=== PATIENT | male | born 1985 | race Caucasian/White ===

== ENCOUNTER 2016-07-31 20:51 | Emergency (ER) | payer MEDICAID ==
[~2016-07-31] VITALS: Ht 162.6 cm; Wt 68.2 kg
[2016-07-31 20:55] VITALS: Ht 162.6 cm; Wt 68.2 kg
--- NOTE | 2016-07-31 21:41 | ERA ---
ER Documentation Chief Complaint Date/Time DATE: 07/31/16 TIME: 21:41 Chief Complaint Palpitation HPI The patient is a 30-year-old male, presenting to the ER because of palpitation at about 8 PM. He denies similar symptoms previously, denies syncope, near syncope, dizziness, chest pain, dyspnea, abdominal pain, vomiting, dysuria, diarrhea. He does not smoke, drinks socially, denies illicit drug Past medical/surgical history: None ROS All systems reviewed and are negative except as per history of present illness. Medications Home Meds No Active Prescriptions or Reported Meds Allergies Allergies: Coded Allergies: No Known Allergy (Unverified , 07/31/16) PMhx/Soc Medical and Surgical Hx: pt denies Medical Hx, pt denies Surgical Hx Hx Alcohol Use: Yes Hx Substance Use: No Hx Tobacco Use: No Smoking Status: Never smoker Physical Exam Vitals Vital Signs Date Time Temp Pulse Resp B/P Pulse Ox O2 Delivery O2 Flow Rate FiO2 08/01/16 00:26 98.7 99 16 145/71 99 Room Air 07/31/16 22:37 98.0 112 17 141/94 100 Room Air 07/31/16 21:35 117 26 147/92 100 Room Air 07/31/16 20:55 99.2 120 18 193/112 98 Physical Exam Const: No acute distress. Head: Atraumatic. Eyes: Normal Conjunctiva. ENT: Normal External Ears, Nose and Mouth. Neck: Full range of motion. No meningismus. Resp: Clear to auscultation bilaterally. Cardio: Regular rate and tachycardic Abd: Soft, non distended, normal bowel sounds, non tender. Skin: No petechiae or rashes. Back: No midline or flank tenderness. Ext: No cyanosis, or edema. Neur: Awake and alert. No focal deficit Psych: Normal Mood and Affect. Result Diagram: 07/31/16214107/31/162141 Results 24 hrs Laboratory Tests Test 07/31/16 21:42 07/31/16 22:06 White Blood Count 7.110^3/ul Red Blood Count 4.6010^6/ul Hemoglobin 14.2g/dl Hematocrit 41.4% Mean Corpuscular Volume 90.0fl Mean Corpuscular Hemoglobin 30.9pg Mean Corpuscular Hemoglobin Concent 34.3g/dl Red Cell Distribution Width 12.3% Platelet Count 83243^3/UL Mean Platelet Volume 9.6fl Neutrophils % 60.4% Lymphocytes % 27.9% Monocytes % 10.1% Eosinophils % 0.7% Basophils % 0.6% Nucleated Red Blood Cells % 0.0/100WBC Neutrophils # 4.310^3/ul Lymphocytes # 2.010^3/ul Monocytes # 0.710^3/ul Eosinophils # 0.110^3/ul Basophils # 0.010^3/ul Nucleated Red Blood Cells # 0.010^3/ul Prothrombin Time 12.0Sec Prothrombin Time Ratio 0.9 INR International Normalized Ratio 0.89 Activated Partial Thromboplast Time 22.2Sec D-Dimer < 220.00ng/ml D-Dimer Comment Sodium Level 140mmol/L Potassium Level 3.1mmol/L Chloride Level 98mmol/L Carbon Dioxide Level 28mmol/L Anion Gap 17 Blood Urea Nitrogen 17mg/dl Creatinine 0.97mg/dl Glucose Level 188mg/dl Calcium Level 9.4mg/dl Total Bilirubin 0.1mg/dl Direct Bilirubin 0.00mg/dl Indirect Bilirubin 0.1mg/dl Aspartate Amino Transf (AST/SGOT) 49IU/L Alanine Aminotransferase (ALT/SGPT) 92IU/L Alkaline Phosphatase 128IU/L Troponin I < 0.012ng/ml Total Protein 8.4g/dl Albumin 4.9g/dl Globulin 3.50g/dl Albumin/Globulin Ratio 1.40 Thyroid Stimulating Hormone (TSH) 1.220MIU/L Urine Opiates Screen Negative Urine Barbiturates Negative Urine Amphetamines Screen Negative Urine Benzodiazepines Screen Negative Urine Cocaine Screen Negative Urine Cannabinoids Negative Ethyl Alcohol Level < 10.0mg/dl Urine Color LT. YELLOW Urine Clarity CLEAR Urine pH 6.5 Urine Specific [place] 1.020 Urine Ketones NEGATIVE Urine Nitrite NEGATIVE Urine Bilirubin NEGATIVE Urine Urobilinogen 0.2 E.U./dL Urine Leukocyte Esterase NEGATIVE Urine Hemoglobin NEGATIVE Urine Glucose 0.25%% Urine Total Protein NEGATIVE Current Medications Medications (Trade) Dose Ordered Sig/Gui Route PRN Reason Start Time Stop Time Status Last Admin Dose Admin Potassium Chloride (Klor-Con 20) 40 meq ONCE STAT PO 07/31/16 22:35 07/31/16 22:36 DC 07/31/16 22:44 Procedures/[place] [id number] [place] [id number] Radiology Main Line: [phone] DIAGNOSTIC IMAGING REPORT Patient: STALIN VEE : 1985 Age: 30 Sex: M [id number] DOS: 07/31/16 2133 Ordering MD: LISA SHELLEY MD Location: E/R Room/Bed: PROCEDURE: XR Chest AP portable CLINICAL INDICATION: Short of breath TECHNIQUE: An AP portable radiograph of the chest was submitted. COMPARISON: None. FINDINGS: Support Hardware: None Cardiovascular: The cardiovascular silhouette appears unremarkable. Lung Jones: The lung jones are clear. Pleural Spaces: No pneumothorax or pleural effusion is identified. Osseous Structures: The osseous structures appear intact. Soft Tissues: The soft tissues appear unremarkable. IMPRESSION: Unremarkable portable chest. Physician Eric Date Time Electronically viewed and signed by Mandi Daniels Physician on 07/31/2016 22:16 RH/ CC: LISA SHELLEY MD EKG: Read by emergency physician Rate/Rhythm: Sinus tachycardia 122 beats/min QRS, ST, T-waves: No ST elevation, no T inversion Impression: Abnormal EKG MEDICAL MAKING DECISION: The patient is a 30-year-old male, presenting with acute palpitation, acute hypokalemia. He was treated with potassium chloride 40 mEq p.o. with good response. The differential diagnoses considered include but are not limited to acute anxiety attack, acute panic attack, asthma, COPD, pneumonia, pulmonary embolus, pleural effusion, congestive heart failure. At 12:30 AM, his vital signs improved in the ER without any intervention, blood pressure 145/91, heart rate 105. He denies any symptoms Departure Diagnosis: Primary Impression: Palpitations Additional Impressions: Hypokalemia Abnormal LFTs Condition: Good Comments I discussed the findings with the patient. I advised the patient to follow-up with the primary physician in about 1-2 days, sooner if needed and return if any concern. The patient's blood pressure was elevated (>120/80) but appears stable without evidence of hypertension emergency or urgency. The patient was counseled about the risks of hypertension and urged to pursue outpatient monitoring and therapy within a week with their primary care physician. LISA SHELLEY MD Jul 31, 2016 21:41
[2016-07-31 21:58] LABS: ADD SCAN DIFF NO
[2016-07-31 21:59] LABS: BASOPHILS % 0.6 % (0.0-2.0); EOSINOPHILS # 0.1 10^3/ul (0.0-0.5); EOSINOPHILS % 0.7 % (0.0-7.0); HEMATOCRIT 41.4 % (42.0-52.0); HEMOGLOBIN 14.2 g/dl (14.0-18.0); LYMPHOCYTES % 27.9 % (15.0-51.0); MEAN CORPUSCULAR HEMOGLOBIN 30.9 pg (29.0-33.0); MEAN CORPUSCULAR HGB CONC 34.3 g/dl (32.0-37.0); MEAN PLATELET VOLUME 9.6 fl (7.4-10.4); MONOCYTE # 0.7 10^3/ul (0.3-0.9); MONOCYTES % 10.1 % (0.0-11.0); NEUTROPHIL # 4.3 10^3/ul (1.6-7.5); NEUTROPHILS % 60.4 % (39.0-77.0); PLATELET COUNT 280 10^3/UL (140-415); RED CELL DISTRIBUTION WIDTH 12.3 % (11.5-14.5); WHITE BLOOD COUNT 7.1 10^3/ul (4.8-10.8)
[2016-07-31 22:08] LABS: ALBUMIN 4.9 g/dl (3.3-4.9); CHLORIDE 98 mmol/L (97-110); SODIUM 140 mmol/L (135-144)
[2016-07-31 22:08] LABS: ADD UMIC NO; URINE BILIRUBIN (Dip) NEGATIVE (NEGATIVE); URINE BLOOD (Dip) NEGATIVE (NEGATIVE); URINE COLOR LT. YELLOW (YELLOW); URINE KETONES (Dip) NEGATIVE (NEGATIVE); URINE LEUKOCYTE ESTERASE (Dip) NEGATIVE (NEGATIVE); URINE NITRITE (Dip) NEGATIVE (NEGATIVE); URINE TOTAL PROTEIN (Dip) NEGATIVE (NEGATIVE); URINE UROBILINOGEN (Dip) 0.2 E.U./dL (0.1-1.0)
[2016-07-31 22:09] LABS: INR 0.89; POTASSIUM 3.1 mmol/L (3.5-5.1); PT RATIO 0.9
[2016-07-31 22:10] LABS: PARTIAL THROMBOPLASTIN TIME 22.2 Sec (25.0-35.0)
[2016-07-31 22:11] LABS: ALANINE AMINOTRANSFERASE 92 IU/L (13-69); ALKALINE PHOSPHATASE 128 IU/L (42-121); ANION GAP 17 (8-16); ASPARTATE AMINO TRANSFERASE 49 IU/L (15-46); BILIRUBIN,INDIRECT 0.1 mg/dl (0-1.1); BILIRUBIN,TOTAL 0.1 mg/dl (0.2-1.3); BLOOD UREA NITROGEN 17 mg/dl (7-20); CARBON DIOXIDE 28 mmol/L (21-31); CREATININE 0.97 mg/dl (0.61-1.24); GLUCOSE 188 mg/dl (70-220); TOTAL PROTEIN 8.4 g/dl (6.1-8.1)
[2016-07-31 22:12] LABS: CALCIUM 9.4 mg/dl (8.4-10.2)
[2016-07-31 22:17] LABS: ETHANOL < 10.0 mg/dl
--- NOTE | 2016-07-31 22:17 | RADRPT ---
PROCEDURE: XR Chest AP portable CLINICAL INDICATION: Short of breath TECHNIQUE: An AP portable radiograph of the chest was submitted. COMPARISON: None. FINDINGS: Support Hardware: None Cardiovascular: The cardiovascular silhouette appears unremarkable. Lung Arthur: The lung arthur are clear. Pleural Spaces: No pneumothorax or pleural effusion is identified. Osseous Structures: The osseous structures appear intact. Soft Tissues: The soft tissues appear unremarkable. IMPRESSION: Unremarkable portable chest. Physician Eric Date Time Electronically viewed and signed by Mandi Daniels Physician on 07/31/2016 22:16 /
[2016-07-31] MEDS ORDERED: POTASSIUM CHLORIDE (SR) 20 MEQ TAB PO STA (22:35)
[2016-07-31 22:38] LABS: TROPONIN-I < 0.012 ng/ml (0.00-0.12)
[2016-07-31 23:29] LABS: BARBITURATES Negative (NEGATIVE); BENZODIAZEPINES Negative (NEGATIVE); CANNABINOIDS Negative (NEGATIVE); COCAINE Negative (NEGATIVE); OPIATES Negative (NEGATIVE)
[2016-07-31 23:37] LABS: D-DIMER < 220.00 ng/ml (<460)
[2016-08-01 00:54] VITALS: BP 136/86; PULSE 101; RESP 22; TEMP 98.9
== END 2016-08-01 00:59 | disposition home or self-care (01) ==
LOC: E/R 20:51
DX: R00.2 Palpitations (principal); E87.6 Hypokalemia; R94.5 Abnormal results of liver function studies; R06.02 Shortness of breath
CPT/HCPCS: 71010; 80053; 80306; 80307; 81003; 84443; 84484; 85025; 85378; 85610; 85730; 93005; Z7610; 36415

== ENCOUNTER 2016-09-09 14:43 | Emergency (ER) | payer SELFPAY ==
[~2016-09-09] VITALS: Wt 64.0 kg
--- NOTE | 2016-09-09 14:59 | ERA ---
ER Documentation Chief Complaint Date/Time DATE: 09/09/16 TIME: 14:59 Chief Complaint Palpitation HPI The patient is a 30-year-old male, presenting to the ER because of palpitation that began about 8 AM this morning. He has similar symptoms previously. He does drink a lot of coffee, denies syncope, near syncope, seizure, neck pain, chest pain, abdominal pain, vomiting, dysuria, diarrhea. He does not smoke, drinks socially, denies illicit drug Past medical history/surgical history: None Past surgical history: None ROS All systems reviewed and are negative except as per history of present illness. Medications Home Meds No Active Prescriptions or Reported Meds Allergies Allergies: Coded Allergies: No Known Allergy (Unverified , 09/09/16) PMhx/Soc Hx Alcohol Use: Yes Hx Substance Use: No Hx Tobacco Use: No Physical Exam Vitals Vital Signs Date Time Temp Pulse Resp B/P Pulse Ox O2 Delivery O2 Flow Rate FiO2 09/09/16 15:48 71 20 133/88 100 09/09/16 14:45 98.8 112 20 166/100 100 Physical Exam Const: No acute distress. Head: Atraumatic. Eyes: Normal Conjunctiva. ENT: Normal External Ears, Nose and Mouth. Neck: Full range of motion. No meningismus. Resp: Clear to auscultation bilaterally. Cardio: Regular tachycardic Abd: Soft, non distended, normal bowel sounds, non tender. Skin: No petechiae or rashes. Back: No midline or flank tenderness. Ext: No cyanosis, or edema. Neur: Awake and alert. No focal deficit Psych: Normal Mood and Affect. Result Diagram: 09/09/16 1505 09/09/16 1505 Results 24 hrs Laboratory Tests Test 09/09/16 15:05 White Blood Count 6.210^3/ul Red Blood Count 4.9010^6/ul Hemoglobin 15.0g/dl Hematocrit 44.5% Mean Corpuscular Volume 90.8fl Mean Corpuscular Hemoglobin 30.6pg Mean Corpuscular Hemoglobin Concent 33.7g/dl Red Cell Distribution Width 12.1% Platelet Count 28994^3/UL Mean Platelet Volume 9.3fl Neutrophils % 66.8% Lymphocytes % 26.1% Monocytes % 6.2% Eosinophils % 0.3% Basophils % 0.3% Nucleated Red Blood Cells % 0.0/100WBC Neutrophils # 4.110^3/ul Lymphocytes # 1.610^3/ul Monocytes # 0.410^3/ul Eosinophils # 0.010^3/ul Basophils # 0.010^3/ul Nucleated Red Blood Cells # 0.010^3/ul Prothrombin Time 11.8Sec Prothrombin Time Ratio 0.9 INR International Normalized Ratio 0.87 Activated Partial Thromboplast Time 23.9Sec Sodium Level 140mmol/L Potassium Level 3.5mmol/L Chloride Level 99mmol/L Carbon Dioxide Level 27mmol/L Anion Gap 18 Blood Urea Nitrogen 14mg/dl Creatinine 0.88mg/dl Glucose Level 137mg/dl Calcium Level 9.4mg/dl Troponin I < 0.012ng/ml Current Medications Medications (Trade) Dose Ordered Sig/Gui Route PRN Reason Start Time Stop Time Status Last Admin Dose Admin Lorazepam (Ativan) 0.5 mg ONCE ONCE PO 09/09/16 15:30 09/09/16 15:31 DC 09/09/16 15:18 Procedures/[place] [id number] Radiology Main Line: [phone] DIAGNOSTIC IMAGING REPORT Patient: JOHN VEE : 1985 Age: 30 Sex: M MR #: [id number] DOS: 09/09/16 1506 Ordering MD: LISA SHELLEY MD Location: E/R Room/Bed: PROCEDURE: XR Chest. CLINICAL INDICATION: chest pain TECHNIQUE: Single frontal view of the chest was obtained COMPARISON: 07/31/2016 FINDINGS: The heart and mediastinum are within normal limits. The lungs are clear. There is no pleural effusion or pneumothorax. RPTAT: AA IMPRESSION: No acute disease. .Rolf Rossi MD, Date Time Electronically viewed and signed by .Rolf Rossi MD, MD on 09/09/2016 15: 34 .S/ CC: LISA SHELLEY MD EKG: Read by emergency physician Rate/Rhythm: Sinus tachycardia 110 beats/min QRS, ST, T-waves: No ST elevation, no T inversion, LVH, inferior and lateral Q waves Impression: Abnormal EKG MEDICAL MAKING DECISION: The patient is a 30-year-old male, presenting with acute palpitation of unclear etiology. He was treated with Ativan 0.5 mg p.o. with good response. The differential diagnoses considered include but are not limited to ectopy, bradyarrhythmia, tachyarrhythmia, AV blocks, acute coronary syndrome/DC, PE, drugs, metabolic, hyperthyroidism, bypass tracts. Departure Diagnosis: Primary Impression: Palpitation Condition: Good Comments I discussed the findings with the patient. I advised the patient to follow-up with the primary physician in about 1-2 days, sooner if needed and return if any concern. The patient's blood pressure was elevated (>120/80) but appears stable without evidence of hypertension emergency or urgency. The patient was counseled about the risks of hypertension and urged to pursue outpatient monitoring and therapy within a week with their primary care physician. LISA SHELLEY MD September 09, 2016 14:59
[2016-09-09 15:17] LABS: ADD SCAN DIFF NO
[2016-09-09 15:21] LABS: BASOPHILS % 0.3 % (0.0-2.0); EOSINOPHILS % 0.3 % (0.0-7.0); HEMATOCRIT 44.5 % (42.0-52.0); LYMPHOCYTES # 1.6 10^3/ul (0.8-2.9); LYMPHOCYTES % 26.1 % (15.0-51.0); MEAN CORPUSCULAR HEMOGLOBIN 30.6 pg (29.0-33.0); MEAN CORPUSCULAR HGB CONC 33.7 g/dl (32.0-37.0); MEAN CORPUSCULAR VOLUME 90.8 fl (82.0-101.0); MEAN PLATELET VOLUME 9.3 fl (7.4-10.4); MONOCYTE # 0.4 10^3/ul (0.3-0.9); MONOCYTES % 6.2 % (0.0-11.0); NEUTROPHIL # 4.1 10^3/ul (1.6-7.5); NEUTROPHILS % 66.8 % (39.0-77.0); PLATELET COUNT 248 10^3/UL (140-415); RED CELL DISTRIBUTION WIDTH 12.1 % (11.5-14.5); WHITE BLOOD COUNT 6.2 10^3/ul (4.8-10.8)
[2016-09-09] MEDS ORDERED: LORAZEPAM 0.5 MG TAB PO ONE (15:30)
--- NOTE | 2016-09-09 15:34 | RADRPT ---
PROCEDURE: XR Chest. CLINICAL INDICATION: chest pain TECHNIQUE: Single frontal view of the chest was obtained COMPARISON: 07/31/2016 FINDINGS: The heart and mediastinum are within normal limits. The lungs are clear. There is no pleural effusion or pneumothorax. RPTAT: AA IMPRESSION: No acute disease. .Rolf Rossi MD, Date Time Electronically viewed and signed by .Rolf Rossi MD, on 09/09/2016 15:34 .S/
[2016-09-09 15:37] LABS: INR 0.87; PROTIME 11.8 Sec (12.2-14.2); PT RATIO 0.9
[2016-09-09 15:38] LABS: PARTIAL THROMBOPLASTIN TIME 23.9 Sec (25.0-35.0)
[2016-09-09 15:40] LABS: CHLORIDE 99 mmol/L (97-110); POTASSIUM 3.5 mmol/L (3.5-5.1); SODIUM 140 mmol/L (135-144)
[2016-09-09 15:42] LABS: CREATININE 0.88 mg/dl (0.61-1.24)
[2016-09-09 15:43] LABS: ANION GAP 18 (8-16); BLOOD UREA NITROGEN 14 mg/dl (7-20); CALCIUM 9.4 mg/dl (8.4-10.2); CARBON DIOXIDE 27 mmol/L (21-31); GLUCOSE 137 mg/dl (70-220)
[2016-09-09 15:48] VITALS: BP 133/88; PULSE 71; RESP 20
[2016-09-09 16:00] LABS: TROPONIN-I < 0.012 ng/ml (0.00-0.12)
== END 2016-09-09 17:06 | disposition home or self-care (01) ==
LOC: E/R 14:43
DX: R00.2 Palpitations (principal); R07.9 Chest pain, unspecified
CPT/HCPCS: 36415; 71010; 80048; 84484; 85025; 85610; 85730; 93005